=== PATIENT | male | born 1935 | race Caucasian/White ===

== ENCOUNTER → 2017-10-20 | Outpatient (CLI) | payer MEDICARE, BC ==
[2017-08-12 13:04] VITALS: BMI 35.4
[~2017-10-20] MED LIST: ACET500T68 PO; ALB18R INH; ALBU8.5H IH; ALL300 PO; ALLO-119 PO; ALLO-2 PO; AML5 PO; AMLO-101 PO; APIX5TAB PO; ASP325 PO; ASPI-757 PO; Acetaminophen PO; BETD15T TOP; BLOO-884 MC; CETI-176 PO; CETI10CA8 PO; CLO75 PO; CLOB15OI16 TP; DILT180C4 PO; DOXA4TAB57 PO; DOXA8TAB62 PO; EDOX30TA PO; FIN5 PO; FINA5TAB64 PO; FLUT16SP19 NS; FOLI-68 PO; FURO-45 PO; FURO-47 PO; FURO20TA19 PO; GUAI600T57 PO; GUAI600T84 PO; HUMALOG SC; HYDR RC; HYDR-317 PO; HYDR-385 PO; HYDR453.8 TP; INDO50CA92 PO; INSU100C12 SQ; INSU100V24 SQ; IPRA3AMP21 IH; LANI SQ; LANI SUBQ; LOSA100T62 PO; LOSA50TA68 PO; MAG-65 PO; METF-410 PO; METH2.5T43 PO; NOVOLOG SC; NOVOLOG SUBQ; OXYB15TA14 PO; OXYC-865 PO; OXYGENHOME INH; PER PO; PRE5 PO; PRED-1 PO; PRED20TA6 PO; PREG75CA60 PO; RIV10 PO; RIVA10TA; RIVA15TA PO; RIVA20TA PO; ROBC PO; SIMV-42 PO; SIMV-49 PO; SITA100T9 PO; TRAM-420 PO; TRAM-627 PO; TRAM100T22 PO; TRIA15OI20 TP; WARF2.5T62 PO; [UNRECOGNIZED DRUG - CODE] MC; [UNRECOGNIZED DRUG - CODE] PO
[2017-10-20 13:05] LABS: INR 1.15
== END ==
LOC: LAB 12:45
PROVIDERS: ATTEND Family Medicine
DX: Z51.81 Encounter for therapeutic drug level monitoring (principal); Z79.01 Long term (current) use of anticoagulants; E11.9 Type 2 diabetes mellitus without complications; E53.8 Deficiency of other specified B group vitamins
CPT/HCPCS: 36415; 82040; 82247; 82310; 82374; 82435; 82565; 82607; 82947; 83036; 84075; 84132; 84155; 84295; 84443; 84450; 84460; 84520; 85610

== ENCOUNTER 2017-11-12 13:45 | Outpatient (RCR) | payer MEDICARE, BC ==
[2017-08-12 13:04] VITALS: BMI 35.4
--- NOTE | 2017-10-07 10:00 | PT INITIAL EVALUATION ---
MEDICAL DIAGNOSIS: Edema of Bilateral Lower Extremities TREATMENT DIAGNOSIS: Edema of Bilateral Lower Extremities DATE OF ONSET: 09/20/17 SUBJECTIVE: Luis is a 81 year-old male presenting to physical therapy following gradual onset of B LE swelling. Pt reports that swelling has been relatively stable over the last year and denies any wounds. Pt reports that he has no pain associated with the swelling. Pt reports that occasionally he has numbness and tingling in the feet, which he reports might be linked to his DM which is roughly controlled. REHAB PROBLEM LIST: Impaired Transfers Decreased Function Decreased ADL's Decreased Mobility PREVIOUS MEDICAL HISTORY: PMH significant for CHF, Renal failure, and venous insufficiency with DVT. See EMR for further Hx. OBJECTIVE: Pt has B LE swelling below the knee. Pt has some skin degradation along the anterior aspect of the R martin as well as fibrosis accumulation around B dorsum of toes. Pt has B varicose veins along the medial aspect of the leg with slightly darkened skin below mid calf B. Posture: L pedal pulse present and strong, R unable to locate secondary to swelling and fibrosis, B dorsalis pedis pulse present and strong. Sensation: Pt sensation diminished to light touch on the plantar aspect of B feet, along the R toes, across B dorsum of foot, and on the L lateral aspect. Special Tests: Stemmer's Sign: (+) on B 1st & 2nd digits, (-) L dorsum, (+) R dorsum of foot. Mobility: Pt reports that he has high fatigue with ambulation longer distances such as grocery shopping and develops back pain if he doesn't have something to support on such as a shopping cart. Other Objective Findings: Circumferential measures (cm): 1st digit: R 8.7, L 9, 2nd digit: R 6.7, L 6.5, dorsum: B 27, Figure-8: R 64, L 65.5, above malleoli: B 33, calf: R 41.8, L 42.8, below knee: R 36.2, L 37. Pt on 3 L of Oxygen. XIAO to be assessed next visit. ASSESSMENT: Pt shows signs and symptoms consistent with B venous insufficiency resulting secondary stage 2 lymphatic insufficiency in the LE. Gradual physical therapy intervention including manual lymph drainage (MLD) is indicated to address the above listed deficits, improve pt circulation, decrease swelling and decrease risk of DVT for improved pt function. Precautions to treatment include decreased fluid processing secondary to CHF and renal disease. Short Term Goals In 3 weeks pt will reduce circumference of figure-8 ankle edema measurement to < 60cm B, for improved functional mobility and decreased limb volume for ADL's. In 6 weeks pt will reduce circumference of figure-8 ankle edema measurement to < 55cm B, for improved functional mobility and decreased limb volume for ADL' s. In 6 weeks pt will improve Lymphedema Life Impact Scale to <18/72 for improved functional ability to perform ADLs's. Patient's Goals Decrease edema PLAN: Patient to be seen for Manual Therapy/STM/MET Range of Motion Stretching Closed Chain Program Gait Trg/Balance Trg Home Exercise Program Therapeutic Activities 4x/Week for 6 Weeks If you have any questions, comments, or concerns about this report or plan, please contact me at . Thank you, Kesha Weinberg, PT, DPT, CLT MTDD
--- NOTE | 2017-10-25 17:26 | PT PLAN OF CARE ---
Physician: Joann Shannon MD Patient is being seen: 4x/Week Therapist: Kesha Weinberg, PT, DPT, CLT Medical Diagnosis: Edema of Bilateral Lower Extremities Treatment Diagnosis: Edema of Bilateral Lower Extremities Date of Onset: 09/20/17 Date of Initial Evaluation: 10/06/17 Date patient was last seen: 10/25/17 Number of treatments: 12 Number of cancellations/No shows: 1 INTERVENTIONS: Manual Therapy/STM/MET Range of Motion Stretching Closed Chain Program Gait Trg/Balance Trg Home Exercise Program Therapeutic Activities GOALS: In 3 weeks pt will reduce circumference of figure-8 ankle edema measurement to < 60cm B, for improved functional mobility and decreased limb volume for ADL's. In 6 weeks pt will reduce circumference of figure-8 ankle edema measurement to < 55cm B, for improved functional mobility and decreased limb volume for ADL' s. In 6 weeks pt will improve Lymphedema Life Impact Scale to <18/72 for improved functional abilty to perform ADLs's. MET PATIENT'S GOAL: Decrease edema Status of Patient's Goals: In Progress Patient Compliance: Good Prognosis: Fair Reasons for continuing therapy: Luis continues to show good reductions with lingering edema present around the ankle to mid calf. Feet show maintenance of debulking with pt able to wear new shoes without problems. Pt to progress to compression stockings independently by the end of the week with measurements taken after 2 more full wrapping sessions. Special Tests: Stemmer's Sign: (-) on B 1st & 2nd digits, (-) L dorsum, (-) R dorsum of foot. Mobility: Pt reports that he has high fatigue with ambulation longer distances such as grocery shopping and develops back pain if he doesn't have something to support on such as a shopping cart. Outcome Measures: Lymphedema Life Impact Scale: 15/72 If you have any questions or concerns, please feel free to contact me at [phone]. Thank you, Kesha Weinberg, PT, DPT, CLT SLY
--- NOTE | 2017-11-08 14:51 | PT PLAN OF CARE ---
Physician: Joann Shannon MD Patient is being seen: 4x/Week Therapist: Kesha Weinberg, PT, DPT, CLT Medical Diagnosis: Edema of Bilateral Lower Extremities Treatment Diagnosis: Edema of Bilateral Lower Extremities Date of Onset: 09/20/17 Date of Initial Evaluation: 10/06/17 Date patient was last seen: 11/08/17 Number of treatments: 20 Number of cancellations/No shows: 0 INTERVENTIONS: Manual Therapy/STM/MET Range of Motion Stretching Closed Chain Program Gait Trg/Balance Trg Home Exercise Program Therapeutic Activities GOALS: In 3 weeks pt will reduce circumference of figure-8 ankle edema measurement to < 63cm B, for improved functional mobility and decreased limb volume for ADL' s. MET In 6 weeks pt will reduce circumference of figure-8 ankle edema measurement to < 60cm B, for improved functional mobility and decreased limb volume for ADL' s. In Progress In 6 weeks pt will improve Lymphedema Life Impact Scale to <18/72 for improved functional ability to perform ADLs's. MET PATIENT'S GOAL: Decrease edema Status of Patient's Goals: 2/3 MET Patient Compliance: Good Prognosis: Fair Reasons for continuing therapy: Luis shows good reductions with maintained compression with foot and calf all fully reduced. Lingering edema is present surrounding the ankle, but shows gradual reduction with continued treatment. At this time pt has been measured and ordered compression garments and treatment will continue until garments arrive and pt is compliant and successful with garment donning and doffing independently. Special Tests: Stemmer's Sign: (-) on B 1st & 2nd digits, (-) L dorsum, (-) R dorsum of foot. Mobility: Pt reports that he has high fatigue with ambulation longer distances such as grocery shopping and develops back pain if he doesn't have something to support on such as a shopping cart. Circumferential measures (R,L) in cm: 1st digit: 8.5, 8.3 (Initial 8.7,9), 2nd digit: 6.3, 6.4 (Initial 6.7,6.5), dorsum of foot: 25, 24.2 (Initial 27, 27), Figure-8: 60.3, 61 (Initial 64, 65.5), Above Malleoli: 28, 30.2 (Initial 33, 33) , Calf: 39.5, 41 (Initial 41.8, 42.5), Below Knee: 36.6, 36.6 (Initial 36.2, 37) Outcome Measures: Lymphedema Life Impact Scale: If you have any questions or concerns, please feel free to contact me at . Thank you, Kesha Weinberg, PT, DPT, CLT MTDD
[~2017-11-12 13:45] MED LIST changes: +CYAN100088 PO
--- NOTE | 2017-11-12 15:35 | PT PLAN OF CARE ---
Physician: Joann Shannon MD Patient is being seen: 4x/Week Therapist: Kesha Weinberg, PT, DPT, CLT Medical Diagnosis: Edema of Bilateral Lower Extremities Treatment Diagnosis: Edema of Bilateral Lower Extremities Date of Onset: 09/20/17 Date of Initial Evaluation: 10/06/17 Date patient was last seen: 11/12/17 Number of treatments: 23 Number of cancellations/No shows: 0 INTERVENTIONS: Manual Therapy/STM/MET Range of Motion Stretching Closed Chain Program Gait Trg/Balance Trg Home Exercise Program Therapeutic Activities GOALS: In 3 weeks pt will reduce circumference of figure-8 ankle edema measurement to < 63cm B, for improved functional mobility and decreased limb volume for ADL' s. MET In 6 weeks pt will reduce circumference of figure-8 ankle edema measurement to < 60cm B, for improved functional mobility and decreased limb volume for ADL' s. In Progress In 6 weeks pt will improve Lymphedema Life Impact Scale to <18/72 for improved functional ability to perform ADLs's. MET PATIENT'S GOAL: Decrease edema Status of Patient's Goals: 2/3 MET Patient Compliance: Good Prognosis: Fair Reasons for discharge from therapy: Luis is to discharge from physical therapy at this time secondary to completion of 2/3 functional goals and progress towards independent compression garments. At the time of discharge pt showed reduced edema throughout the entire B distal LE with increased ability to wear all shoe wear and improved functional mobility. Small edema remains around B ankles towards the end of the day, but should be prevented with use of compression garments. Pt is to continue management independently with use of compression stockings for daytime use only. Special Tests: Stemmer's Sign: (-) on B 1st & 2nd digits, (-) L dorsum, (-) R dorsum of foot. Mobility: Pt reports that he has high fatigue with ambulation longer distances such as grocery shopping and develops back pain if he doesn't have something to support on such as a shopping cart. Circumferential measures (R,L) in cm: 1st digit: 8.5, 8.3 (Initial 8.7,9), 2nd digit: 6.3, 6.4 (Initial 6.7,6.5), dorsum of foot: 25, 24 (Initial 27, 27), Figure-8: 60.3, 61 (Initial 64, 65.5), Above Malleoli: 29.5, 29.5 (Initial 33, 33), Calf: 38, 39.8 (Initial 41.8, 42.5), Below Knee: 36.2, 36.5 (Initial 36.2, 37) Outcome Measures: Lymphedema Life Impact Scale: If you have any questions or concerns, please feel free to contact me at . Thank you, Kesha Weinberg, PT, DPT, CLT MTDD
== END 2017-11-12 18:00 | disposition home or self-care (01) ==
LOC: PT 13:45
PROVIDERS: ATTEND Family Medicine
DX: R60.0 Localized edema (principal); E11.9 Type 2 diabetes mellitus without complications; R20.2 Paresthesia of skin; I50.9 Heart failure, unspecified; I87.2 Venous insufficiency (chronic) (peripheral); I83.813 Varicose veins of bilateral lower extremities with pain; Z86.718 Personal history of other venous thrombosis and embolism
CPT/HCPCS: 97162

== ENCOUNTER → 2017-12-20 | Outpatient (CLI) | payer MEDICARE, BC ==
[2017-08-12 13:04] VITALS: BMI 35.4
[~2017-12-20] MED LIST changes: -TRAM100T22 PO; +TRAM100T8 PO
[2017-12-20 12:02] LABS: PLATELET COUNT, AUTOMATED 212 K/uL (150-450)
[2017-12-20 12:23] LABS: INR 2.51
== END ==
LOC: LAB 10:12
PROVIDERS: ATTEND Family Medicine
DX: Z51.81 Encounter for therapeutic drug level monitoring (principal); Z79.01 Long term (current) use of anticoagulants; E78.00 Pure hypercholesterolemia, unspecified; I10 Essential (primary) hypertension
CPT/HCPCS: 36415; 82040; 82247; 82310; 82374; 82435; 82465; 82565; 82947; 83718; 84075; 84132; 84155; 84295; 84450; 84460; 84478; 84520; 85025; 85610

== ENCOUNTER → 2018-01-26 | Outpatient (CLI) | payer MEDICARE, BC ==
[2017-08-12 13:04] VITALS: BMI 35.4
[~2018-01-26] MED LIST changes: +PRAV40TA78 PO; +PRE1 PO
== END ==
LOC: LAB 12:27
PROVIDERS: ATTEND Family Medicine
DX: M10.9 Gout, unspecified (principal); E11.9 Type 2 diabetes mellitus without complications
CPT/HCPCS: 36415; 82040; 82247; 82310; 82374; 82435; 82565; 82947; 83036; 84075; 84132; 84155; 84295; 84450; 84460; 84520; 84550

== ENCOUNTER → 2018-03-09 | Outpatient (CLI) | payer MEDICARE, BC ==
[2017-08-12 13:04] VITALS: BMI 35.4
[~2018-03-09] MED LIST changes: -METF-410 PO; +METF-411 PO
== END ==
LOC: LAB 11:58
PROVIDERS: ATTEND Urology
DX: Z12.5 Encounter for screening for malignant neoplasm of prostate (principal)
CPT/HCPCS: 36415; G0103; 84153

== ENCOUNTER 2018-03-16 13:45 | Outpatient (RCR) | payer MEDICARE, BC ==
[2017-08-12 13:04] VITALS: BMI 35.4
--- NOTE | 2018-02-22 14:28 | PT INITIAL EVALUATION ---
MEDICAL DIAGNOSIS: back pain TREATMENT DIAGNOSIS: same DATE OF ONSET: 02/21/99 SUBJECTIVE: Luis Mccoy presents to physical therapy with complaints of back pain that started approximately 1997 or 1998, but has gotten worse this last year. He reports that his back gets worse with bending, sitting (for longer than 1 hour), standing, and walking. He reports that the pain feels better if he is lying or sits for a few minutes but if he sits too long the pain will increase. He reports that he is able to sleep well without any difficulties. He denies night pain. He denies unexplained weight loss. He denies increased pain with coughing, sneezing, straining. He reports normal bladder and gait. He denies any falls or accidents or recent/major surgeries. He reports that his back pain feels better if he sits with better posture. Pain location is L3-L5 spinous process. REHAB PROBLEM LIST: Increased Pain Decreased ROM Decreased Strength Decreased Endurance Decreased Balance Decreased Function PREVIOUS MEDICAL HISTORY: See EMR OCCUPATION: Retired OBJECTIVE: Posture: He demonstrated B rounded shoulders, forward head, increased thoracic kyphosis, and decreased lumbar lordosis. ROM: Trunk AROM: flexion: NIL with muscular end feel. extension: minimal restriction with painful end feel. side gliding R: NIL with muscular end feel. side gliding L: NIL with muscular end feel Palpation: TTP: L3-5 spinous process Sensation: L2-S1 intact Special Tests: Repeated extension in standing: stretch during test and better following test with improvements in trunk AROM with more normalized end feels. Repeated flexion in sitting: stretch during test with worse following test as pain peripheralized. Mobility: Independent Balance: Will test in the future ASSESSMENT: Luis will benefit from skilled physical therapy to address the listed impairments to improve function and QOL. His provisional classification is a posterior derangement that will be addressed with extension based principles to improve function and QOL. Short Term Goals 2 weeks: Pt will demonstrate centralized low back pain to improve function and QOL. 4 weeks: Pt will demonstrate abolished low back pain to improve function and QOL. 6 weeks: Pt will demonstrate return to prior level of function to improve function and QOL. Patient's Goals reduce low back pain PLAN: Patient to be seen for Manual Therapy/STM/MET Strengthening/condition Range of Motion Spinal Stabilization Work Hardening/Cond Stretching Closed Chain Program Posture/Body mechanics Gait Trg/Balance Trg Home Exercise Program Therapeutic Activities 2x/Week for 6 Weeks If you have any questions, comments, or concerns about this report or plan, please contact me at . Thank you, Luke Flynn, PT, DPT NICOLÁSD
--- NOTE | 2018-03-18 15:11 | PT PLAN OF CARE ---
Physician: Joann Shannon MD Patient is being seen: 2x/week Therapist: Luke Flynn, PT, DPT Medical Diagnosis: back painTH Treatment Diagnosis: same Date of Onset: 02/21/99 Date of Initial Evaluation: 02/21/18 Date patient was last seen: 03/16/18 Number of treatments: 7 Number of cancellations/No shows: 1 INTERVENTIONS: Manual Therapy/STM/MET Strengthening/condition Range of Motion Spinal Stabilization Work Hardening/Cond Stretching Closed Chain Program Posture/Body mechanics Gait Trg/Balance Trg Home Exercise Program Therapeutic Activities GOALS: 2 weeks: Pt will demonstrate centralized low back pain to improve function and QOL. MET 4 weeks: Pt will demonstrate abolished low back pain to improve function and QOL. Progressing toward 6 weeks: Pt will demonstrate return to prior level of function to improve function and QOL. MET PATIENT'S GOAL: reduce low back pain Status of Patient's Goals: Progressed well Patient Compliance: Good Prognosis: Good Reasons for continuing therapy: This is a discharge note for Luis Mccoy. He has demonstrated centralized low back pain with extension based principles. He has received the education necessary to perform his specific exercise and to help prevent future reoccurrences. If he continues to perform his specific exercise and utilize the postural education (lumbar support) he will achieve full resolution of symptoms; however, if he does not continue to perform he will not have full resolution of symptoms. Furthermore, he demonstrated full trunk AROM in all directions with normal end feels, which is a significant improvement. As a result, he will be discharged from PT to his home exercise program. Posture: He demonstrated B rounded shoulders, forward head, increased thoracic kyphosis, and decreased lumbar lordosis. ROM: Trunk AROM: flexion: NIL with muscular end feel. extension: minimal restriction with painful end feel. side gliding R: NIL with muscular end feel. side gliding L: NIL with muscular end feel Special Tests: Repeated extension in standing: stretch during test and better following test with improvements in trunk AROM with more normalized end feels. Repeated flexion in sitting: stretch during test with worse following test as pain peripheralized. Mobility: Independent If you have any questions, please contact me at [phone]. Thank you, Luke Flynn, PT, DPT [facility]
[2018-03-21] MEDS ORDERED: ALLO-2 PO (17:13)
[2018-03-23] MEDS ORDERED: FURO20TA19 PO (12:44)
== END 2018-03-16 18:00 | disposition home or self-care (01) ==
LOC: PT 13:45
PROVIDERS: ATTEND Family Medicine
DX: M54.9 Dorsalgia, unspecified (principal)
CPT/HCPCS: 97162

== ENCOUNTER → 2018-03-30 | Outpatient (CLI) | payer MEDICARE, BC ==
[2017-08-12 13:04] VITALS: BMI 35.4
[2018-03-30 13:01] LABS: INR 1.74
== END ==
LOC: LAB 11:25
PROVIDERS: ATTEND Family Medicine
DX: Z51.81 Encounter for therapeutic drug level monitoring (principal); Z79.01 Long term (current) use of anticoagulants; I10 Essential (primary) hypertension
CPT/HCPCS: 36415; 82310; 82374; 82435; 82565; 82947; 84132; 84295; 84520; 85610

== ENCOUNTER → 2018-04-27 | Outpatient (CLI) | payer MEDICARE, BC, MEDICAID ==
[2017-08-12 13:04] VITALS: BMI 35.4
[~2018-04-27] MED LIST changes: +IPRA3AMP10 IH; -IPRA3AMP21 IH; +TRIA80OI13 TP
== END ==
LOC: LAB 12:45
PROVIDERS: ATTEND Family Medicine
DX: N18.9 Chronic kidney disease, unspecified (principal)
CPT/HCPCS: 36415; 82310; 82374; 82435; 82565; 82947; 84132; 84295; 84520

== ENCOUNTER → 2018-05-13 | Outpatient (CLI) | payer MEDICARE, BC, MEDICAID ==
[2017-08-12 13:04] VITALS: BMI 35.4
[2018-05-13 13:58] LABS: INR 1.46
== END ==
LOC: LAB 13:39
PROVIDERS: ATTEND Family Medicine
DX: Z51.81 Encounter for therapeutic drug level monitoring (principal); Z79.01 Long term (current) use of anticoagulants
CPT/HCPCS: 36415; 85610

== ENCOUNTER → 2018-08-03 | Outpatient (CLI) | payer MEDICARE, BC, MEDICAID ==
[2017-08-12 13:04] VITALS: BMI 35.4
[~2018-08-03] MED LIST changes: +DICL100G39 TOP; +FLU180SY11 IM; -METF-411 PO; +METF-450 PO; +NYST15PO4 TP; +[UNRECOGNIZED DRUG - CODE] TP
[2018-08-03 13:04] LABS: PLATELET COUNT, AUTOMATED 212 K/uL (150-450)
== END ==
LOC: LAB 12:51
PROVIDERS: ATTEND Family Medicine
DX: E11.9 Type 2 diabetes mellitus without complications (principal)
CPT/HCPCS: 36415; 82040; 82247; 82310; 82374; 82435; 82565; 82947; 83036; 84075; 84132; 84155; 84295; 84450; 84460; 84520; 85025

== ENCOUNTER → 2018-08-17 | Outpatient (CLI) | payer MEDICARE, BC, MEDICAID ==
[2017-08-12 13:04] VITALS: BMI 35.4
[~2018-08-17] MED LIST changes: +[UNRECOGNIZED DRUG - CODE] SUBQ
[2018-08-17 13:26] LABS: INR 1.46
== END ==
LOC: LAB 11:37
PROVIDERS: ATTEND Family Medicine
DX: Z79.01 Long term (current) use of anticoagulants (principal)
CPT/HCPCS: 36415; 85610

== ENCOUNTER → 2018-11-17 | Outpatient (CLI) | payer MEDICARE, MEDICAID ==
[2017-08-12 13:04] VITALS: BMI 35.4
[~2018-11-17] MED LIST changes: +CALC-1 PO; +CHOL500050 PO
[2018-11-17 15:20] LABS: PLATELET COUNT, AUTOMATED 235 K/uL (150-450)
[2018-11-17 15:52] LABS: INR 5.92
== END ==
LOC: LAB 14:59
PROVIDERS: ATTEND Family Medicine
DX: E11.9 Type 2 diabetes mellitus without complications (principal); Z79.01 Long term (current) use of anticoagulants; E83.51 Hypocalcemia
CPT/HCPCS: 36415; 82040; 82247; 82306; 82310; 82374; 82435; 82565; 82947; 83036; 83735; 84075; 84132; 84155; 84295; 84450; 84460; 84520; 85025; 85610

== ENCOUNTER → 2018-12-08 | Outpatient (CLI) | payer MEDICARE, MEDICAID ==
[2017-08-12 13:04] VITALS: BMI 35.4
[2018-12-08 09:10] LABS: INR 4.75
== END ==
LOC: LAB 08:51
PROVIDERS: ATTEND Family Medicine
DX: Z51.81 Encounter for therapeutic drug level monitoring (principal); Z79.01 Long term (current) use of anticoagulants
CPT/HCPCS: 36415; 85610

== ENCOUNTER → 2018-12-13 | Outpatient (CLI) | payer MEDICARE, MEDICAID ==
[2017-08-12 13:04] VITALS: BMI 35.4
== END ==
LOC: LAB 08:36
PROVIDERS: ATTEND Family Medicine
DX: E55.9 Vitamin D deficiency, unspecified (principal); N18.9 Chronic kidney disease, unspecified
CPT/HCPCS: 36415; 82040; 82247; 82306; 82310; 82374; 82435; 82565; 82947; 84075; 84132; 84155; 84295; 84450; 84460; 84520

== ENCOUNTER → 2019-01-25 | Outpatient (CLI) | payer MEDICARE, MEDICAID ==
[2017-08-12 13:04] VITALS: BMI 35.4
[2019-01-25 11:54] LABS: PLATELET COUNT, AUTOMATED 214 K/uL (150-450)
[2019-01-25 12:06] LABS: INR 1.76
== END ==
LOC: LAB 11:31
PROVIDERS: ATTEND Family Medicine
DX: I10 Essential (primary) hypertension (principal); Z79.01 Long term (current) use of anticoagulants
CPT/HCPCS: 36415; 82040; 82247; 82310; 82374; 82435; 82565; 82947; 84075; 84132; 84155; 84295; 84450; 84460; 84520; 85025; 85610

== ENCOUNTER → 2019-04-01 | Outpatient (CLI) | payer MEDICARE, MEDICAID ==
[2017-08-12 13:04] VITALS: BMI 35.4
== END ==
LOC: LAB 12:34
PROVIDERS: ATTEND Urology
DX: Z12.5 Encounter for screening for malignant neoplasm of prostate (principal); N40.1 Benign prostatic hyperplasia with lower urinary tract symptoms
CPT/HCPCS: 36415; 84153